=== PATIENT | female | born 1980 | race Caucasian/White ===

== ENCOUNTER 2018-12-25 12:23 | Observation (INO) | payer OTHER, SELFPAY ==
--- NOTE | 2018-12-25 12:53 | RAD ---
EXAM: Two views chest PROVIDED CLINICAL HISTORY: Chest pain COMPARISON: 08/28/2018 FINDINGS: Cardiac and mediastinal silhouette appears within normal limits. Lungs appear free of significant opa city. No pleural fluid or pneumothorax apparent. IMPRESSION: No evidence for an acute cardiopulmonary process.
[2018-12-25 13:25] LABS: #Basophils 0.1 thou/uL (0.0-0.2); #Eosinphils 0.7 thou/uL (0.0-0.7); #Lymphocytes 3.5 thou/uL (1.20-3.40); #Monocytes 0.6 thou/uL (0.11-0.59); #Neutrophils 4.5 thou/uL (1.40-6.50); %Basophils 0.6 % (0.0-1.0); %Lymphocytes 37.6 % (21.0-51.0); %Monocytes 6.4 % (0.0-10.0); %Neutrophils 48.3 % (42.0-75.0); Mean Corpuscular HGB CONC 34.4 g/dL (32.0-36.0); Mean Corpuscular Hemoglobin 35.4 pg (27.0-31.0); Mean Platelet Volume 8.9 fL (7.4-10.4); Platelet Count 332 thou/uL (130-400); RBC Distribution Width 11.4 % (11.5-14.5); Red Blood Cell (RBC) Count 4.23 mill/uL (4.20-5.40); White Blood Cell (WBC) Count 9.3 thou/uL (4.8-10.8)
[2018-12-25 13:47] LABS: ALT (SGPT) 9 U/L (8-55); AST (SGOT) 16 U/L (5-34); Albumin 4.4 g/dL (3.5-5.0); Alkaline Phosphatase 60 U/L (40-150); Anion Gap 14 mmol/L (10-20); BUN (Urea Nitrogen) 14 mg/dL (7.0-18.7); Bilirubin, Total 0.6 mg/dL (0.2-1.2); CK (CPK) 65 U/L (29-168); Calc. Creatinine Clearance 0 mL/min (70-130); Calcium 10.1 mg/dL (7.8-10.44); Carbon Dioxide 23 mmol/L (22-29); Chloride 104 mmol/L (98-107); Estimated GFR-MDRD 76; Glucose 80 mg/dL (70-105); Lipase 25 U/L (8-78); Protein, Total 7.4 g/dL (6.0-8.3); Sodium 137 mmol/L (136-145)
[2018-12-25 14:56] LABS: Bilirubin Negative (Negative); Blood, Urine Negative (Negative); Clarity Clear (Clear); Glucose, Urine (Dipstick) Normal (Negative); Leukocyte Negative Leu/uL (Negative); Nitrite Negative (Negative); Protein, Urine (Dipstick) Negative (Neg-Trace); Urobilinogen Normal mg/dL (Less than 2)
[2018-12-25 15:00] LABS: Pregnancy Test - Urine (BHCG) Negative (Negative); Pregu Control Background? CLEAR/WHITE (CLR/WHITE); Pregu Control Bar Appear? YES (CONTROL BAR); Specific Gravity 1.009 (1.002-1.036)
[2018-12-25] MEDS ORDERED: Aspirin 325 MG TAB ONE (17:15)
[2018-12-25 18:44] LABS: Troponin I Less than 0.010 ng/mL (< 0.028)
[2018-12-25 18:55] VITALS: BMI 31.0
[2018-12-25] MEDS ORDERED: Metoprolol Tartrate 25 MG TAB PO SCH (21:45)
[2018-12-25 21:48] LABS: Troponin I Less than 0.010 ng/mL (< 0.028)
[2018-12-25] MEDS ORDERED: Ondansetron PF 4 MG/2 ML Vial IVP PRN (22:31)
[2018-12-25] MEDS ORDERED: Ondansetron ODT 4 MG TAB PO PRN (22:31)
[2018-12-25] MEDS ORDERED: Acetaminophen 500 MG TAB PO PRN (22:31)
--- NOTE | 2018-12-25 23:38 | HP ---
CHIEF COMPLAINT: Palpitations, chest tightness, and near syncope. HISTORY OF PRESENT ILLNESS: Ms. Mavis Royal is a pleasant 38-year-old female with past medical history of known diagnosed neurocardiogenic syncope, who presented to the hospital today with the above complaints. The patient states that over the past several months, she has been noticing increasing palpitations that she describes as "chest pounding." Her primary care physician, Dr. Marta Bird, has referred the patient to Dr. Leiva for further workup and treatment. She was recently seen by Dr. Leiva, and the patient is currently wearing an event monitor. She was scheduled for outpatient echocardiogram at his office this , along with referral to Dr. Ferrari as well next Tuesday. Given this history, the patient states that she was at work today, and when she stood up, she reports near syncope, which included lightheadedness and dizziness, along with palpitations. She also had some associated chest tightness. Her symptoms improved somewhat when she sat back down. Her son's birthday is today and they went to dinner, but the patient continued to feel lightheaded, fatigued with some dizziness, so decided to present to the emergency department for further workup and treatment. On arrival to the emergency department, the patient had a 12-lead EKG which showed sinus rhythm with ventricular rate in the 80s. Her troponin has been negative. Her primary blasting coal miner, Dr. Leiva, was called from the emergency department and he did recommend admission as well as treadmill stress test. The patient states that she has had changes in heart rate and blood pressure with orthostatic checks in her PCP's office, but she states that this is not always the case. She is on beta alejandro therapy to help suppress her symptoms. REVIEW OF SYSTEMS: A 12-point review of systems performed and is negative except that stated above. PAST MEDICAL HISTORY: As mentioned, neurocardiogenic syncope history, now with symptomatic palpitations, currently being worked up by Dr. Leiva. PAST SURGICAL HISTORY: , hysterectomy, excision of wisdom teeth. ALLERGIES: ACETAMINOPHEN, DEXTROMETHORPHAN, DOXYLAMINE, PSEUDOEPHEDRINE. THE PATIENT REPORTS ALLERGY TO [facility]. HOME MEDICATIONS: Metoprolol tartrate 12.5 mg q.p.m. SOCIAL HISTORY: The patient is a current smoker and smokes about a half pack per day. She denies any alcohol or illicit drug use. 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 She has a 19-year-old and a 16-year-old. PHYSICAL EXAMINATION: VITAL SIGNS: Blood pressure 100/71, pulse 64, O2 saturation is 94% on room air , and temperature is 98.2. GENERAL: The patient is a well-appearing female who appears her stated age, currently in no acute distress. HEENT: Head is atraumatic and normocephalic. Mucous membranes are moist. NECK: Trachea is midline. No JVD. CV: S1 and S2. Regular rate and rhythm. No appreciable murmurs, rubs, or gallops. LUNGS: Regular respiratory rate and pattern. Clear to auscultation bilaterally. ABDOMEN: Positive bowel sounds. Soft and nontender. EXTREMITIES: No edema. SKIN: Warm and dry. No rashes. NEUROLOGIC: Cranial nerves II through XII are intact. The patient is nonfocal. LABORATORY DATA: White blood cell count 9.3, hemoglobin 15, hematocrit 43.6, platelet count is 332. Sodium 137, potassium 4.0, chloride 104, BUN is 14, creatinine 0.84. AST 16, ALT 9, alkaline phosphatase 60, creatine kinase 65. Troponin is negative x3. BNP is 15. Lipase 25. Urinalysis negative for infection. test negative as well. ASSESSMENT: 1. Palpitations and presyncope in a patient with known history of neurocardiogenic syncope, currently being worked up in outpatient setting by Dr. Leiva. 2. Neurocardiogenic/vasovagal syncope, the patient is failing conservative management thus far; she has increased her sodium and fluid intake as well as trying beta alejandro therapy. 3. Tobacco abuse. PLAN: At this time, we will admit the patient for observation and further workup. We will go ahead and order an echocardiogram to rule out any structural heart disease that may be contributing to her syncope. The patient is wearing an event monitor, and certainly interrogation may help with any arrhythmogenic cause for her syncope. The patient has been referred to Dr. Ferrari as well, although I do not have outside records as to reason for referral, although carotid hypersensitivity syndrome may be in differential. We will order a stress test in the morning per Dr. Leiva's recommendations. I certainly appreciate his recommendations. We will continue her beta alejandro for now. Further recommendations based on findings of noninvasive testing. Job ID: [id number] [facility]
[2018-12-26 05:40] LABS: Cardiac Risk 6.5 (Less than 4.5)
[2018-12-26] MEDS ORDERED: Aspirin 81 mg Enteric Coated Tablet PO SCH (09:00)
--- NOTE | 2018-12-26 10:04 | CON ---
DATE OF CONSULTATION: HISTORY OF PRESENT ILLNESS: The patient is a 38-year-old woman, who presents with palpitations and left-sided chest discomfort. The patient has a long history of syncope. She states for the past 25 years, she has had episodes, where she becomes lightheaded and suddenly lose consciousness. The patient previously has been treated with midodrine. She has also at times been on Toprol. 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 The patient was seen for the first time a week ago for a cardiac evaluation. She had a 30-day monitor placed. She was in her usual state of health when she suddenly became weak and lightheaded. She reported having left-sided chest discomfort. She states this was a severe discomfort associated with diaphoresis and dyspnea. She was taken to the emergency room. The patient states that chest discomfort eventually resolved. The patient did not pass out on this occasion. The patient had several cardiac risk factors including a tobacco abuse and a family history of coronary artery disease. PAST MEDICAL HISTORY: 1. Recurrent syncope. 2. History of B12 deficiency. PAST SURGICAL HISTORY: Hysterectomy, . FAMILY HISTORY: Positive family history of coronary artery disease. MEDICATIONS: Lopressor 12.5 daily. ALLERGIES: NO KNOWN DRUG ALLERGIES. PHYSICAL EXAMINATION: GENERAL: This is a thin woman, in no acute distress. VITAL SIGNS: Blood pressure was 103/61 sitting, 100/61 standing, 107/60 supine. NECK: Showed no jugular venous distention. LUNGS: Clear to auscultation. HEART: Regular rate and rhythm. Normal S1 and S2. ABDOMEN: Nondistended. EXTREMITIES: Showed no edema. Vascular and radial pulses 2+. LABORATORY DATA: White blood cell count 9.3, hemoglobin 15.0, hematocrit 43.6, and platelets were 332. Sodium is 137, potassium 4.0, chloride 104, bicarbonate 14 , BUN was 14, and creatinine 0.84. Troponin less than 0.01. Her troponin level is 0.01. BNP was 15. IMPRESSION: 1. Chest pain. 2. History of recurrent syncope. 3. Tobacco abuse. PLAN: This patient presented with chest discomfort. Her EKG is unremarkable. There is no evidence of myocardial infarction. Based on cardiac enzymes, with her risk factors and history of syncope, we would recommend she proceed directly with Cardiolite stress testing. The patient has already had an echocardiogram. We will check the results of the echocardiogram. The patient has probable neurocardiogenic syncope. EP consultation will be obtained. We will check the results of the 30-day monitor at the time of her symptoms. The patient has been advised not drive a motor vehicle. We will follow this patient with you through her hospitalization. Job ID: [id number] MTDD
--- NOTE | 2018-12-26 14:05 | NM ---
EXAM: CARDIAC SPECT HISTORY: Chest pain, syncope, palpitations, smoker TECHNIQUE: A myocardial perfusion scan was performed using the single isotope 1 day protocol with j carlos hnetium 99m sestamibi. [10 mCi] was injected intravenously for the rest exam followed by 30 mCi for the stress study. Exercise stress was monitored and interpreted by Dr. Leiva FINDINGS: Homogeneous tracer distribution is seen in the myocardial segments on stress and rest image s without fixed or reversible defects. Gated SPECT LVEF: 67% Wall motion exam: Normal IMPRESSION: Normal myocardial perfusion scan
--- NOTE | 2018-12-26 14:22 | CON ---
DATE OF CONSULTATION: 12/26/2018 HISTORY OF PRESENT ILLNESS: I am seeing Ms. Royal at our [facility] Telemetry Floor as an Electrophysiology successfactors consultant for the following problems. 1. Chronic vasovagal syncopal spells. 2. Structurally normal heart by echo on 12/26/2018, normal LVEF. 3. Atypical chest pain and chest pounding. 4. Remote history of neurological abnormality as an infant with sensory issues up until age 5. 5. History of tobacco abuse. ALLERGIES: DEXTROMETHORPHAN, DOXYLAMINE, AND PSEUDOEPHEDRINE. MEDICATIONS: At home included metoprolol tartrate 12.5 mg p.o. at bedtime. SUBJECTIVE: Ms. Royal is here due to episodes of chest tightness sensation with associated lightheadedness. She is noticing a strong chest pounding in fact, Dr. Leiva's has placed an event monitor on her, which she is still wearing. She has not completely passed out. The discomforts are somewhat atypical, not radiational, not related to position, or food intake. Nonpleuritic either. Her symptoms also are better by sitting back down. Currently, she is asymptomatic lying in the bed. Rest of 12-point review of systems otherwise unremarkable. PAST MEDICAL HISTORY: Past history as above. She has long history of neurocardiogenic syncope in the past, was treated with midodrine. Currently, she is on Toprol-XL. She does have a good prodrome prior to her syncopal spells and she is able to mostly sit down or lay down, which usually aborts her symptoms. Her last passing out spell was number of months ago, even then she was able to sit down and then she slumped down from the chair. Her current episode was not unusual except for the chest pounding and tightness sensation she never had any. Rest of past history otherwise unremarkable. She has no diabetes. No hypertension. No stroke-like symptoms. PAST SURGICAL HISTORY: She had surgical history significant for childbirth x2, hysterectomy, and excision of wisdom teeth. OBJECTIVE: VITAL SIGNS: Blood pressure is initially 100/71, pulse 80, blood pressure yesterday last night is sitting 89/60, standing 90/78, and supine is 90 /56. Today, blood pressure is standing 100/61 and supine 107/60. Temperature 97.8 degrees Fahrenheit. Oxygen saturation 93%. DATABASE: EKG is reviewed reveal sinus rhythm, no ST-T changes. LABORATORY DATA: White cell count is 9.3, hemoglobin is 15, and platelet count is 332. Sodium 137, potassium 4, BUN is 14, and creatinine 0.84. The cardiac enzymes are negative. Telemetry strip so far reveal sinus rhythm. No significant tachy or jose de jesus arrhythmia episodes are noted. ASSESSMENT AND PLAN: Ms. Royal is a pleasant 38-year-old woman with prior history of vasovagal syncope since age 13 in which she is able to control reasonably well now. She has some palpitations or strong heart beating sensations, but she is wearing the monitor, which we will obtain interrogation of. Also, she does not seems to have any significant structural heart disease based on the echocardiogram and stress test is pending. I am expecting that to be normal. Plan is at this point, continue beta-alejandro therapy. We will obtain event monitor for any specific arrhythmias. If the orthostatic hypotension still remains an issue, she could be considered for Northera versus Florinef or midodrine treatment. Support stocking might be also advisable. Discussed with Dr. Leiva. We will see her in the office,as already arranged. Job ID: [id number] MTDD
[2018-12-26 15:51] VITALS: TEMP 98.4
[2018-12-26 15:53] VITALS: BP 96/58
[2018-12-26] MEDS ORDERED: Metoprolol Tartrate 25 MG TAB PO SCH (21:00)
--- NOTE | 2018-12-26 23:03 | EKG ---
Test Reason : Blood Pressure : / mmHG Vent. Rate : 068 BPM Atrial Rate : 068 BPM P-R Int : 164 ms QRS Dur : 088 ms QT Int : 400 ms P-R-T Axes : -08 -15 026 degrees QTc Int : 425 ms Normal sinus rhythm with sinus arrhythmia Normal ECG When compared with ECG of 25-DEC-2018 12:34, (Unconfirmed) Nonspecific T wave abnormality no longer evident in Anterior leads Confirmed by Gildardo MOSQUERA ([id number]) on 12/26/2018 11:02:37 PM Referred By: JANAK Confirmed By:Gildardo MOSQUERA
--- NOTE | 2018-12-27 02:29 | DIS ---
DATE OF ADMISSION: 12/25/2018 DATE OF DISCHARGE: 12/26/2018 CONSULTANTS: 1. Michael Leiva MD, Cardiology Service. 2. Cullen Ferrari MD, Electrophysiology Service. FINAL DIAGNOSES: 1. Recurrent chronic syncope most likely vasovagal versus neurocardiogenic etiology. 2. Atypical chest pain with negative stress test. HOSPITAL COURSE: The patient is a 38-year-old female with past medical history of neurocardiogenic syncope of a long time, who presented to the hospital with palpitations and chest tightness. Apparently, she is seeing Dr. Leiva and she is getting workup of above-mentioned problems. She was wearing the monitor apparently during this emergency room evaluation. Her orthostatic changes were positive while in the emergency room, getting evaluated. The labs showed white count of 9.3, hemoglobin 15, hematocrit 43.6, and platelet count 332. Normal electrolytes. Normal chemistry with normal troponins x3. Normal BNP. Normal UA. Normal negative test. The patient got admitted to the hospital and product mgmt dev manager was consulted. The patient was seen by Dr. Leiva, who recommended a stress test to rule out any coronary artery disease, which was performed and was normal. LVEF was estimated at 67% and there was normal wall motion exam and normal myocardial perfusion scan. Also, echocardiogram was performed which showed ejection fraction of the left ventricle was estimated at 50% to 55%, and the rest of echocardiogram was within normal limits. Dr. Cullen Ferrari saw her for electrophysiology evaluation and he recommended to start her on medications for her orthostatic hypotension if she was found to be in orthostasis, but she was checked twice and each time her blood pressure and pulse did not really change a whole lot while changing position, so she was not started on any new medications. She is doing fine at this point. She is discharged home. PHYSICAL EXAMINATION: VITAL SIGNS: Her blood pressure is 102/58, pulse is 86, temperature is 98.4, respirations 16, O2 saturation is 94% on room air. She was seen and examined before she was discharged. LUNGS: Clear. HEART: S1, S2 normal. No S3. No S4. No any murmur. ABDOMEN: Soft, nontender. EXTREMITIES: No clubbing, cyanosis, or edema. NEUROLOGICAL: She is alert and oriented x4. There are no any motor or sensory deficits. Cranial nerves are intact. DISCHARGE INSTRUCTIONS: She was discharged home in good condition with recommendation to follow up with primary care physician in a week and with near east archeology professor. Apparently, she has an appointment with Dr. Ferrari, already scheduled. She will stay on heart healthy diet. She was advised not to drive or operate any machinery since she has episodes of syncopal collapse quite often. Her medications are same at the time of discharge. No new medications were started. TIME SPENT: Time spent on this discharge is less than 30 minutes. Job ID: [id number]
== END 2018-12-26 17:24 | disposition home or self-care (01) ==
LOC: ERS 12:23 → 2SW 18:31
PROVIDERS: ADMIT Family Medicine; ATTEND Family Medicine
DX: R55 Syncope and collapse (principal); R07.89 Other chest pain; R00.2 Palpitations; I49.9 Cardiac arrhythmia, unspecified; F17.210 Nicotine dependence, cigarettes, uncomplicated; Z88.6 Allergy status to analgesic agent; Z88.8 Allergy status to other drugs, medicaments and biological substances; Z79.899 Other long term (current) drug therapy
CPT/HCPCS: 36415; 71046; 78452; 80053; 80061; 81003; 81025; 82550; 83690; 83880; 84484; 85025; 90471; 90732; 93005; 93010; 93017; 93306; 94760; 96360; 96361; A9500; G0009; G0378

== ENCOUNTER 2021-05-12 08:56 | Outpatient (CLI) | payer BC | END 2021-05-12 08:57 | disposition home or self-care (01) | LOC: BICMAMMO 08:56 | PROVIDERS: ATTEND Family Medicine | DX: Z12.31 Encounter for screening mammogram for malignant neoplasm of breast (principal); Z80.3 Family history of malignant neoplasm of breast | CPT/HCPCS: 77063; 77067 ==